=== PATIENT | female | born 1955 | race Caucasian/White ===

== ENCOUNTER 2020-06-25 07:07 | Outpatient (CLI) | payer MEDICARE ==
[2020-06-25 15:17] LABS: #Eosinphils 0.1 10x3/uL (0.0-0.5); #Monocytes 0.5 10x3/uL (0.0-1.1); #Neutrophils 3.9 10x3/uL (1.5-8.4); %Basophils 0.3 % (0.0-2.0); %Eosinophils 1.4 % (0.0-6.0); %Lymphocytes 22.3 % (18.0-47.0); %Monocytes 7.8 % (0.0-10.0); %Neutrophils 67.9 % (40.0-75.0); Hemoglobin 11.1 g/dL (12.0-16.0); Mean Corpuscular HGB CONC 32.1 G/DL (32.0-36.0); Mean Corpuscular Hemoglobin 27.4 PG (27.0-33.0); Mean Corpuscular Volume 85.4 fl (80.0-100.0); Mean Platelet Volume 9.1 fl (7.4-10.4); Platelet Count 323 10x3/uL (130-400); RBC Distribution Width 13.9 % (11.5-14.5); Red Blood Cell (RBC) Count 4.05 10x6/uL (3.90-5.20); White Blood Cell (WBC) Count 5.8 10x3/uL (4.5-11.0)
[2020-06-25 15:37] LABS: Anion Gap 16 mmol/L (10-20); BUN (Urea Nitrogen) 23 mg/dL (9.8-20.1); Calc. Creatinine Clearance 0 mL/min (70-130); Calcium 9.2 mg/dL (7.8-10.44); Carbon Dioxide 23 mmol/L (23-31); Chloride 107 mmol/L (98-107); Estimated GFR-MDRD 38; Glucose 182 mg/dL (80-115); Potassium 4.7 mmol/L (3.5-5.1); Sodium 141 mmol/L (136-145)
[2020-06-26 13:42] LABS: SARS-CoV-2 MS2 Positive; SARS-CoV-2 N Gene Negative; SARS-CoV-2 S Gene Negative; SARS-CoV-2 by NAA Not Detected (NotDetected); SARS-CoV-2 orf1ab Negative
--- NOTE | 2020-06-27 20:55 | EKG ---
Test Reason : Blood Pressure : / mmHG Vent. Rate : 080 BPM Atrial Rate : 080 BPM P-R Int : 164 ms QRS Dur : 078 ms QT Int : 350 ms P-R-T Axes : 050 086 068 degrees QTc Int : 403 ms Normal sinus rhythm Normal ECG No previous ECGs available Confirmed by Augustine MUSE ([id number]) on 06/27/2020 8:55:13 PM Referred By: IERO Confirmed By:Augustine MUSE
== END 2020-06-25 07:08 | disposition home or self-care (01) ==
LOC: LABBT 07:07
PROVIDERS: ATTEND Orthopaedic Surgery
DX: Z01.818 Encounter for other preprocedural examination (principal); M75.102 Unspecified rotator cuff tear or rupture of left shoulder, not specified as traumatic; Z20.828 Contact with and (suspected) exposure to other viral communicable diseases
CPT/HCPCS: 80048; 85025; 93005; U0003; 87635; 93010

== ENCOUNTER 2020-06-30 05:56 | Day surgery (SDC) | payer MEDICARE, OTHER ==
[2020-06-29 10:15] VITALS: BMI 28.6
[2020-06-30] MEDS ORDERED: Clindamycin/D5W 600 mg/50 ml Premix Bag ONE (06:05)
[2020-06-30] MEDS ORDERED: Fentanyl 100 MCG/2 ML VIAL ONE ×2 (07:01→07:43)
[2020-06-30] MEDS ORDERED: Midazolam HCl 2 mg/2 ml Vial ONE (07:01)
[2020-06-30] MEDS ORDERED: Lidocaine 1% (PF) 30 ML VIAL ONE (07:01)
[2020-06-30] MEDS ORDERED: Lidocaine 1% w/Epinephrine 1:100K 20 ML VIAL ONE (07:03)
[2020-06-30] MEDS ORDERED: Fentanyl 100 MCG/2 ML VIAL IV PRN (07:17)
[2020-06-30] MEDS ORDERED: Ondansetron PF 4 MG/2 ML Vial IVP PRN (07:30)
[2020-06-30] MEDS ORDERED: traMADol HCl 50 MG TAB PO PRN ×2 (07:30)
[2020-06-30] MEDS ORDERED: Ropivacaine 0.2% 550 ML 550 ML NERVE BLCK SCH (07:30)
[2020-06-30] MEDS ORDERED: Promethazine HCl 25 MG/ML VIAL IM PRN ×2 (07:30→08:27)
[2020-06-30] MEDS ORDERED: HYDROcodone/Acetaminophen 10/325 mg Tablet PO PRN ×2 (07:30)
[2020-06-30] MEDS ORDERED: Zolpidem Tartrate 5 MG TAB PO PRN (07:30)
[2020-06-30] MEDS ORDERED: Meperidine HCl/PF 25 MG/ML VIAL SLOW IVP PRN (08:27)
[2020-06-30] MEDS ORDERED: PACU-Morphine 4MG/ML VIAL SLOW IVP PRN (08:27)
[2020-06-30] MEDS ORDERED: Promethazine HCl 25 MG/ML VIAL SLOW IVP PRN (08:27)
[2020-06-30] MEDS ORDERED: Dexamethasone 20 MG/5 ML VIAL ONE (09:57)
[2020-06-30] MEDS ORDERED: Metoclopramide HCl 10 MG/2 ML VIAL ONE (09:57)
[2020-06-30] MEDS ORDERED: Lidocaine 1% PF 5 ML VIAL ONE (09:57)
[2020-06-30] MEDS ORDERED: Rocuronium Bromide 10 MG/ML (10ML VIAL) ONE (09:57)
[2020-06-30] MEDS ORDERED: PROPOFOL 200 MG/20 ML VIAL ONE (09:57)
[2020-06-30] MEDS ORDERED: Ropivacaine 0.5% HCl/PF (150 MG/30 ML VIAL) ONE (09:57)
[2020-06-30] MEDS ORDERED: Ropivacaine 0.2% HCl/PF (40 MG/20 ML VIAL) ONE (09:57)
[2020-06-30] MEDS ORDERED: PHENYLEPHRINE-NS 100 MCG/ML 10 ML SYRINGE ONE (09:57)
[2020-06-30] MEDS ORDERED: Ondansetron PF 4 MG/2 ML Vial ONE (09:57)
[2020-06-30] MEDS ORDERED: Glycopyrrolate 0.2 MG/ML 5 ML SYRINGE ONE (09:57)
[2020-06-30] MEDS ORDERED: Ketorolac Tromethamine 30 MG/ML VIAL IVP SCH (12:00)
--- NOTE | 2020-06-30 17:35 | OP ---
DATE OF PROCEDURE: 06/30/2020 PREOPERATIVE DIAGNOSIS: Left shoulder superior labrum anterior-posterior tear with tear going into the biceps anchor. POSTOPERATIVE DIAGNOSIS: Left shoulder superior labrum anterior-posterior tear with tear going into the biceps anchor. PROCEDURES PERFORMED: 1. Left shoulder arthroscopy with debridement and shaving. 2. Open biceps tenodesis. INSULATION APPLICATOR: None. BLOOD LOSS: Minimal. COMPLICATIONS: None. ANESTHESIA: The patient did have a general anesthetic as well as a block of her left shoulder. DISPOSITION: She did go to recovery room in stable condition. IMPLANTS: We used a 7 x 23 BioComposite Bio-Tenodesis screw. INDICATIONS: A 64-year-old female who has failed nonoperative treatment for her painful shoulder. At this time, she had an MRI scan of the shoulder to have a degenerative SLAP tear with tearing up into the biceps tendon itself. At this time, she opted to have surgery. DESCRIPTION OF PROCEDURE: After all appropriate consent forms were explained and signed, she was taken to the operative room and at this time was given general anesthetic. Once the level of anesthesia was appropriate, she was rolled into the right lateral decubitus position with all bony prominences well padded. An axillary roll was placed into the right axilla and a dumont bag was inflated to hold in this position. The left arm was then taken through full range of motion and then suspended with 10 pounds in standard arthroscopic fashion. The left shoulder and upper extremity were prepped and draped in standard surgical fashion. At this time, bony anatomical landmarks were drawn out. The subacromial space was infiltrated with Marcaine with epinephrine. Posterior portal was established. Scope was placed into the shoulder joint. Anterior working portal was made using a needle localization technique. Diagnostic arthroscopy commenced in the glenohumeral joint and we found that the articular surface of the humeral head and glenoid were in excellent condition. There were no loose bodies in the axillary pouch. The significant degenerative labrum including a degenerative [place] complex anteriorly followed by a degenerative SLAP tear superiorly going up into the biceps tendon and incorporating pretty much the entire intra-articular portion of the biceps and containing around posteriorly to the posterior superior labrum. This was all debrided using a shaver back to a stable base. The top portion of subscapularis had a very thin area of tearing, which was debrided as well. The rotator cuff itself was found to be in good condition. At this time, a green cannula was placed anteriorly. We then used an 18-gauge needle to gibson the biceps tendon and place a stitch through it. Arthroscopic scissors were then used to cut the biceps tendon off the superior labrum. A shaver and SERFAS energy were then used to coagulate any brisk venous bleeding in the joint as well as smooth off the area where the biceps used to attach. At this time, scope was removed and replaced into the subacromial space. Lateral working portal was made, and at this time, the SERFAS energy and shaver were used to remove the copious amount of bursa from off the underlying rotator cuff. The rotator cuff was evaluated and found to be intact throughout. No significant bony decompression was needed. The scope was removed. Shoulder was drained. A 15 blade was used to incise the skin down through skin only. The Bovie was used to coagulate any brisk venous bleeding. Sharp dissection was used to cut down through the deltoid fascia. Finger dissection was used to split the fibers in line with the muscle to get down to the underlying transverse humeral ligament. Biceps tendon was palpated inside the bicipital groove. This was opened up and the tendon pulled out into the wound. The tendon was then sutured in standard fashion using the Arthrex suture device. We then cut off and removed the intra-articular portion of the biceps tendon from the field. At this time, the pin was placed into the bicipital groove inferiorly and this was over-reamed with a 7 mm reamer to a depth of 25. We then placed a 7 x 23 BioComposite Bio-Tenodesis screw in standard fashion, fixating our tendon. Sutures were tied over top of this, so the screw could not back out. At this time, we then thoroughly irrigated and dried. We allowed the deltoid to fall upon itself. The deltoid fascia was closed with a running Vicryl, 2-0 Vicryl sutures were used to close the incision. Each portal was then closed with simple nylon stitch. At this time, a bulky sterile dressing was applied. The patient was then awakened. She was taken to recovery room in stable condition. All counts were correct at the end of the case and she did receive preoperative IV antibiotics. Job ID: [id number]
== END 2020-06-30 11:15 | disposition home or self-care (01) ==
LOC: SDC 05:56
PROVIDERS: ATTEND Orthopaedic Surgery
PROC: 0RBK4ZZ Excision of Left Shoulder Joint, Percutaneous Endoscopic Approach (ICD-10-PCS; principal; 2020-06-30)
PROC: 0LS40ZZ Reposition Left Upper Arm Tendon, Open Approach (ICD-10-PCS; 2020-06-30)
PROC: 0RHK04Z Insertion of Internal Fixation Device into Left Shoulder Joint, Open Approach (ICD-10-PCS; 2020-06-30)
PROC: 3E0T3BZ Introduction of Anesthetic Agent into Peripheral Nerves and Plexi, Percutaneous Approach (ICD-10-PCS; 2020-06-30)
DX: S43.432A Superior glenoid labrum lesion of left shoulder, initial encounter (principal); S46.212A Strain of muscle, fascia and tendon of other parts of biceps, left arm, initial encounter; G89.18 Other acute postprocedural pain; I12.9 Hypertensive chronic kidney disease with stage 1 through stage 4 chronic kidney disease, or unspecified chronic kidney disease; E11.22 Type 2 diabetes mellitus with diabetic chronic kidney disease; N18.4 Chronic kidney disease, stage 4 (severe); J45.909 Unspecified asthma, uncomplicated; E78.5 Hyperlipidemia, unspecified; Z87.891 Personal history of nicotine dependence; Z79.82 Long term (current) use of aspirin; Z79.84 Long term (current) use of oral hypoglycemic drugs; Z79.899 Other long term (current) drug therapy; Z88.0 Allergy status to penicillin; Z88.5 Allergy status to narcotic agent
CPT/HCPCS: 23430; 29822; 64416; A4306; C1713; J1100; J2001; J2250; J2405; J2704; J2765; J2795; J3010; J3490

== ENCOUNTER 2020-07-21 09:30 | Outpatient (CLI) | payer MEDICARE, OTHER | END 2020-07-21 09:31 | disposition home or self-care (01) | LOC: DTY/OP 09:30 | PROVIDERS: ATTEND Family Medicine | DX: E11.22 Type 2 diabetes mellitus with diabetic chronic kidney disease (principal); N18.32 Chronic kidney disease, stage 3b | CPT/HCPCS: 97802 ==

== ENCOUNTER 2020-11-09 09:43 | Outpatient (CLI) | payer MEDICARE, OTHER | END 2020-11-09 09:44 | disposition home or self-care (01) | LOC: BICMAMMO 09:43 | PROVIDERS: ATTEND Family Medicine | DX: Z12.31 Encounter for screening mammogram for malignant neoplasm of breast (principal); Z13.820 Encounter for screening for osteoporosis; Z78.0 Asymptomatic menopausal state; Z80.3 Family history of malignant neoplasm of breast; Z80.8 Family history of malignant neoplasm of other organs or systems | CPT/HCPCS: 77063; 77067; 77080 ==

== ENCOUNTER 2023-12-25 09:22 | Outpatient (CLI) | payer MEDICARE, OTHER ==
[2023-12-25 10:55] LABS: #Basophils 0.05 10x3/uL (0.0-0.2); #Eosinphils 0.11 10x3/uL (0.0-0.5); #Monocytes 0.55 10x3/uL (0.0-1.1); #Neutrophils 4.87 10x3/uL (1.5-8.4); %Basophils 0.7 % (0.0-2.0); %Eosinophils 1.5 % (0.0-6.0); %Lymphocytes 22.5 % (18.0-47.0); %Monocytes 7.6 % (0.0-10.0); %Neutrophils 67.1 % (40.0-75.0); Hematocrit 36.2 % (34.9-44.5); Hemoglobin 12.3 g/dL (12.0-15.5); Mean Corpuscular Volume 91.2 fl (81.6-98.3); Mean Platelet Volume 9.6 fl (7.4-10.4); Platelet Count 210 10x3/uL (150-450); RBC Distribution Width 13.8 % (11.5-14.5); Red Blood Cell (RBC) Count 3.97 10x6/uL (3.90-5.03); White Blood Cell (WBC) Count 7.3 10x3/uL (3.5-10.5)
[2023-12-25 11:33] LABS: Anion Gap 14 mmol/L (10-20); BUN (Urea Nitrogen) 29 mg/dL (9.8-20.1); Calc. Creatinine Clearance 0 mL/min (70-130); Calcium 9.7 mg/dL (7.8-10.44); Carbon Dioxide 21 mmol/L (23-31); Chloride 108 mmol/L (98-107); Estimated GFR 40; Glucose 209 mg/dL (80-115); Potassium 4.1 mmol/L (3.5-5.1); Sodium 139 mmol/L (136-145)
== END 2023-12-25 09:23 | disposition home or self-care (01) ==
LOC: LABBT 09:22
PROVIDERS: ATTEND Orthopaedic Surgery Hand Surgery
DX: Z01.818 Encounter for other preprocedural examination (principal); M19.042 Primary osteoarthritis, left hand
CPT/HCPCS: 80048; 85025; 93005; 93010

== ENCOUNTER 2023-12-28 06:40 | Day surgery (SDC) | payer MEDICARE, OTHER ==
[2023-12-25 09:58] VITALS: BMI 32.1
[2023-12-28] MEDS ORDERED: Sodium Chloride 0.9% 100 ML ONE (07:35)
[2023-12-28] MEDS ORDERED: CEFAZOLIN 2 GM VIAL ONE (07:35)
[2023-12-28] MEDS ORDERED: PROPOFOL 40 ML ONE (08:01)
[2023-12-28] MEDS ORDERED: Lidocaine 2% PF 5 ML VIAL ONE (08:02)
[2023-12-28] MEDS ORDERED: fentaNYL PF 100 MCG/2 ML SYRINGE ONE (08:31)
[2023-12-28] MEDS ORDERED: Bacitracin Zinc Ointment 30 gm TUBE ONE (08:31)
[2023-12-28] MEDS ORDERED: Bupivacaine PF 0.5% 30 ML VIAL ONE (08:32)
[2023-12-28] MEDS ORDERED: Vancomycin 1 GM/200 ML (FROZEN) BAG ONE (08:36)
[2023-12-28] MEDS ORDERED: Glycopyrrolate 0.2 MG/ML 5 ML SYRINGE ONE (08:59)
[2023-12-28] MEDS ORDERED: Dexamethasone 20 MG/5 ML VIAL ONE (08:59)
[2023-12-28] MEDS ORDERED: Ondansetron PF 4 MG/2 ML Vial ONE (08:59)
[2023-12-28] MEDS ORDERED: PHENYLEPHRINE-NS 100 MCG/ML 10 ML SYRINGE ONE (09:28)
== END 2023-12-28 12:35 | disposition home or self-care (01) ==
LOC: SDC 06:40
PROVIDERS: ATTEND Orthopaedic Surgery Hand Surgery
PROC: 0RGV0JZ Fusion of Left Metacarpophalangeal Joint with Synthetic Substitute, Open Approach (ICD-10-PCS; principal; 2023-12-28)
DX: M19.042 Primary osteoarthritis, left hand (principal); M19.041 Primary osteoarthritis, right hand; E11.9 Type 2 diabetes mellitus without complications; I10 Essential (primary) hypertension; C56.9 Malignant neoplasm of unspecified ovary; J45.909 Unspecified asthma, uncomplicated; E78.5 Hyperlipidemia, unspecified; Z87.19 Personal history of other diseases of the digestive system; Z98.890 Other specified postprocedural states; Z90.710 Acquired absence of both cervix and uterus; Z86.010 Personal history of colon polyps; Z98.49 Cataract extraction status, unspecified eye; Z87.891 Personal history of nicotine dependence; Z88.8 Allergy status to other drugs, medicaments and biological substances; Z88.0 Allergy status to penicillin; Z88.5 Allergy status to narcotic agent; Z79.82 Long term (current) use of aspirin; Z79.899 Other long term (current) drug therapy
CPT/HCPCS: 26860; 73140; A6258; C1894; J3370; J0665; J1100; J2001; J2405; J2704; J3490